=== PATIENT | male | born 1960 | race Caucasian/White ===

== ENCOUNTER 2018-09-04 17:11 | Emergency (ER) | payer BC ==
[~2018-09-04] VITALS: Ht 167.6 cm; Wt 65.9 kg
[~2018-09-04 17:11] MED LIST: lidocaine 1%/epinephrine 1:100,000 injection 50ml vial ONE
[2018-09-04 17:30] VITALS: BP 127/62
[2018-09-04] MEDS ORDERED: cephalexin 250mg capsule PO ONE (18:50)
[2018-09-04] MEDS ORDERED: sulfamethoxazole/trimethoprim DS (800/160mg) tablet PO ONE (18:50)
[2018-09-04] MEDS ORDERED: SULF1TAB49 PO (19:20)
[2018-09-04] MEDS ORDERED: CEPH-572 PO (19:20)
== END 2018-09-04 19:33 | disposition home or self-care (01) ==
LOC: ER 17:11
DX: L02.414 Cutaneous abscess of left upper limb (principal); Z79.899 Other long term (current) drug therapy
CPT/HCPCS: 10060; 99283

== ENCOUNTER 2021-01-21 16:45 | Emergency (ER) | payer BC ==
[~2021-01-21] VITALS: Ht 167.6 cm; Wt 68.2 kg
[2021-01-21 16:49] VITALS: BP 160/79
--- NOTE | 2021-01-21 17:55 | NUR ---
PROVIDER AT BEDSIDE
--- NOTE | 2021-01-21 18:06 | NUR ---
EMT STUDENT IRRIGATING WOUND
--- NOTE | 2021-01-21 18:30 | NUR ---
ASSUMED CARE OF PT. MD AT BEDSIDE.
[2021-01-21] MEDS ORDERED: CEPH250T PO (19:12)
[2021-01-21] MEDS ORDERED: HYDR-3965 PO (19:52)
[2021-01-21] MEDS ORDERED: HYDROcodone/acetaminophen 5mg/325mg tablet PO ONE (19:55)
== END 2021-01-21 19:50 | disposition home or self-care (01) ==
LOC: ER 16:46
DX: S71.111A Laceration without foreign body, right thigh, initial encounter (principal); Z72.89 Other problems related to lifestyle; Z79.2 Long term (current) use of antibiotics; X58.XXXA Exposure to other specified factors, initial encounter; Y93.89 Activity, other specified; Y92.89 Other specified places as the place of occurrence of the external cause; Y99.8 Other external cause status
CPT/HCPCS: 12032; 99284